=== PATIENT | male | born 1970 | race Caucasian/White ===

== ENCOUNTER 2025-10-10 12:06 | Emergency (ER) | payer BC, SELFPAY ==
--- NOTE | ~2025-10-10 | XR_ITS ---
Examination: [id number] Clinical History: pain after coughing, l ribs Comparison: None Technique: Portable AP, 3 views left wrist Findings: Heart size normal. Trace linear atelectasis right base. Focal cortical widening left rib 10 but with smooth margins. IMPRESSION: 1. No acute cardiopulmonary findings given portable technique. 2. No displaced rib fracture identified. 3. Probable chronic healed rib fracture left rib 10 rather than acute abnormality. Reviewed, dictated and finalized at location R. SHOE OPERATOR IMPRESSION: 1. No acute cardiopulmonary findings given portable technique. 2. No displaced rib fracture identified. 3. Probable chronic healed rib fracture left rib 10 rather than acute abnormal ity.
--- OUTSIDE RECORDS SUMMARY | 2025-10-10 12:13 | XMS_ITS | Clinical Summary ---
Author Organization [facility] Address [address] [place] [address] Care Team Providers Care Tester Wafer Substrate Name Role Phone Rey Ward MD Primary Care Provider [phone] Allergies No known active allergies Medications moxifloxacin (VIGAMOX) 0.5 % ophthalmic solution Administer 1 drop into the left eye every hour while awake 15 mL 3 4 Active amlodipine-olme sartan (ELIDA) 5-20 mg per tablet Take 1 tablet by mouth daily 4 Active valACYclovir (VALTREX) 1 gram tablet Take 1 tablet (1,000 mg total) by mouth daily 4 Active vancomycin (VANCOCIN) 500 mg injection 4 Active Active Problems Problem Noted Date Diagnosed Date 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 Social History Tobacco Use Types Packs/Day Years Used Date Smoking Tobacco: Former Cigarettes Smokeless Tobacco: Never Tobacco Cessation:Counseling Given: No Sex and Gender Information Value Date Recorded Sex Assigned at Not on file 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 Gender Identity Not on file Sexual Orientation Not on file Plan of Treatment Health Maintenance Due Date Last Done Comments Colon Cancer Screening-Colonoscopy 1971 Depression Screening 1971 Hepatitis C Screening 1971 Prostate Cancer Screening-PSA 1971 DTaP/Tdap/Td Vaccine (1 - Tdap) 1982 Hepatitis B Screening 1989 Regular Well Visit/Exam 18-64 1989 Zoster Vaccine (1 of 2) 2021 Influenza Vaccine (#1) 2025 Pneumococcal vaccine <65 Aged Out No longer eligible based on patient's age to complete this topic Insurance [employer] [place] [employer] [place] Care Teams Tester Wafer Substrate Relationship Specialty Start Date End Date Rey Ward MD [address] [place] [id number] PCP - General Emergency Medicine 03/09/24
[2025-10-10 12:29] VITALS: BP 141/80; PULSE 81; RESP 20; TEMP 36.6; O2SAT 96
--- NOTE | 2025-10-10 13:01 | ED.GENADULT ---
HPI - General Adult General Chief complaint: Unspecified Stated complaint: cough caused a snap -left side Time Seen by Provider: 10/10/25 12:45 Source: patient and RN notes reviewed Mode of arrival: ambulatory Limitations: no limitations History of Present Illness HPI narrative: 54-year-old male patient presents Express Care complaining left lower rib pain for 4 days. Patient has a 4 days ago he with a cough he felt something pop/snap in his left lower rib followed by pain. Patient reports pain with inspiration, coughing, laughing. Patient denies any falls or injuries. Patient said he had a similar incident in this area 2 years ago that subsided on its own. Patient denies any sick symptoms, no fevers, body aches, chills, chest pain with exertion nausea vomiting, any other symptoms. Patient taking ibuprofen that was symptoms. Related Data Home Medications ?Medication ?Instructions ?Recorded ?Confirmed ?Last Taken ?Type amlodipine 5 mg-olmesartan 20 mg tablet 10/10/25 Unknown History tablet Allergies Allergy/AdvReac Type Severity Reaction Status Date / Time No Known Allergies Allergy Verified 10/10/25 12:15 Review of Systems Review of Systems: CONSTITUTIONAL: Denies fever, chills, or sweats. EYES: Denies visual changes, redness, or discharge. ENT: Denies rhinorrhea, congestion, sore throat, or otalgia. CARDIOVASCULAR: Denies chest pain, palpitations, or edema. RESPIRATORY: Denies cough or dyspnea. GASTROINTESTINAL: Denies abdominal pain, nausea, vomiting, or diarrhea. GENITOURINARY: Denies dysuria or hematuria. SKIN: Denies rash or itching. MUSCULOSKELETAL: Denies back pain, joint pain, or myalgia. Positive for rib pain. NEUROLOGIC: Denies headache, numbness, or weakness. PSYCHIATRIC: Denies anxiety or depression. All other systems reviewed are negative, except as documented in HPI. PMFSH Comments At the time of my signature, I reviewed and agree with the nursing past medical, surgical, social, and family history. There is no relevant family history pertinent to the patient complaint. Exam Narrative: GENERAL: This is a well-nourished, well-developed adult, in no apparent distress. They are non ill-appearing, nontoxic appearing. HEAD: normocephalic, atraumatic. EYES: Sclera clear/white. Conjunctiva normal. Vision is grossly intact. Extraocular movements intact EARS: External ears normal, Hearing grossly intact. NOSE: External nose normal THROAT: Mucous membranes moist, NECK: Neck supple, non-tender without lymphadenopathy, masses or thyromegaly. CARDIOVASCULAR: Regular rate and rhythm without murmurs, gallops, or rubs. RESPIRATORY: Clear to auscultation. Breath sounds equal bilaterally. No wheezes, rales, or rhonchi. CHEST WALL: Obvious bruising, deformity, or injury. No flail chest segment. No paradoxical movements. Left lateral lower ribs mildly tender to palpate. SKIN: warm, Dry, intact with no suspicious lesions or rash, good texture and turgor. NEURO: awake, alert, and oriented to person, place and time. There were no obvious focal neurologic abnormalities. EXTREMITIES: No joint tenderness, effusion, or edema noted. BACK: Nontender without deformity. Course Course Level of Care: Express Care Visit Vital Signs Vital signs: Vital Signs Temperature 98 F 10/10/25 12:29 Pulse Rate 81 10/10/25 12:29 Respiratory Rate 20 10/10/25 12:29 Blood Pressure 141/80 H 10/10/25 12:29 Pulse Oximetry 96 10/10/25 12:29 Oxygen Delivery Room Air 10/10/25 12:29 Temperature 98 F 10/10/25 12:29 Pulse Rate 81 10/10/25 12:29 Respiratory Rate 20 10/10/25 12:29 Blood Pressure 141/80 H 10/10/25 12:29 Pulse Oximetry 96 10/10/25 12:29 Oxygen Delivery Room Air 10/10/25 12:29 [facility] Narrative Medical decision making narrative: Rib/chest x-ray shows a probable healed rib fracture left 10th rib. Otherwise no acute findings. Patient's pain is generalized to this area, patient could have re-injured his previous rib injury however rib contusion. Will send patient home with incentive spirometer, discussed supportive care. Discussed physical exam findings. Advised supportive measures and signs/symptoms to go to the ER. Pt is appropriate for outpt treatment and f/u. Differential Diagnosis Differential Diagnosis: Rib fracture, rib contusion, rib injury, muscle skeletal injury, pneumonia Imaging Data Radiologist's impression: ITS Impressions Ribs w/Chest X-Ray 10/10/25 12:41 IMPRESSION: 1. No acute cardiopulmonary findings given portable technique. 2. No displaced rib fracture identified. 3. Probable chronic healed rib fracture left rib 10 rather than acute abnormality. Critical Care Time Critical Care Time Critical Care Time: No Discharge Plan Discharge Clinical Impression: Contusion of rib on left side Qualifiers: Encounter type: initial encounter Qualified Code(s): S29.8XXA - Other specified injuries of thorax, initial encounter Patient Disposition: Home Condition: Stable Instructions: Antibiotic Form, Rib Contusion (ED) Additional Instructions: Your chest/rib x-ray is negative for any acute fractures or findings, it does show an incidental finding of a chronic rib fractures the left 10th rib. Using incentive spirometer while awake every 2 hours taking 10 deep breaths to help prevent pneumonia. You may take ibuprofen 600 mg to 800 mg every 6-8 hours. Do not exceed more than 800 mg of ibuprofen per dose. Do not exceed more than 3200 mg ibuprofen in a day. You may take up to 1000 mg Tylenol every 6-8 hours. Do not exceed 1000 mg per dose, do exceed more than 4000 mg of Tylenol in a day. May apply ice or heat to the affected area 10 to 20 minutes few times a day. Follow-up with PCP in 1 week. Go to the ER if he develops any signs pneumonia, chest pains, fevers, weakness, difficulty breathing, or any serious concerns. Patient Language: Faroese Prescriptions: No Action amlodipine-olmesartan 5-20 mg tablet Follow-up/Referrals: Rey Ward MD [Primary Care Provider, [facility]] Time of Disposition: 12:58
== END 2025-10-10 13:05 | disposition home or self-care (01) ==
PROVIDERS: PCP Emergency Medicine
DX: S20.20XA Contusion of thorax, unspecified, initial encounter (principal); X58.XXXA Exposure to other specified factors, initial encounter; I10 Essential (primary) hypertension
CPT/HCPCS: 71101; 99203; G0463